=== PATIENT | male | born 1980 | race Two or more races ===

== ENCOUNTER 2016-11-18 13:24 | Emergency (ER) | payer OTHER ==
[~2016-11-18] VITALS: Ht 182.9 cm; Wt 99.8 kg
[2016-11-18 14:08] VITALS: BP 139/84
[2016-11-18] MEDS ORDERED: AMOX1TAB61 PO (14:22)
--- NOTE | 2016-11-18 14:22 | PHYS DOC ---
Past Medical History Past Medical History: No Pertinent History Past Surgical History: No Surgical History Alcohol Use: Rarely Drug Use: None Adult General Chief Complaint Chief Complaint: COUGH HPI HPI Patient is a 36 year old male presents emergency department stating that he has a 3 day history of cough congestion low-grade fever. 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 He states that his been taken over-the- counter medications with no relief. He also states that 3 days ago he started taken amoxicillin 875 mg at home which has not helped with any of the symptoms. Patient states he has also not had any appetite. Review of Systems Review of Systems Constitutional: low grade fever Eyes: Denies change in visual acuity, redness, or eye pain [] HENT: nasal congestion and sore throat [] Respiratory: cough denies shortness of breath [] Cardiovascular: No additional information not addressed in HPI [] GI: Denies abdominal pain, nausea, vomiting, bloody stools or diarrhea [] : Denies dysuria or hematuria [] Musculoskeletal: Denies back pain or joint pain [] Integument: Denies rash or skin lesions [] Neurologic: Denies headache, focal weakness or sensory changes [] Endocrine: Denies polyuria or polydipsia [] Allergies Allergies Allergies Coded Allergies Type Severity Reaction Last Updated Verified No Known Drug Allergies 11/18/16 No Physical Exam Physical Exam Constitutional: Well developed, well nourished, no acute distress, non-toxic appearance. [] HENT: Normocephalic, atraumatic, bilateral external ears normal, oropharynx moist, no oral exudates, nose normal. Bilateral tympanic membranes appear to be normal. Throat appears to be red with no erythematous no exudate noted. Patient with minimal frontal and maxillary sinus tenderness. Eyes: PERRLA, EOMI, conjunctiva normal, no discharge. [] Neck: Normal range of motion, no tenderness, supple, no stridor. [] Cardiovascular:Heart rate regular rhythm, no murmur [] Lungs & Thorax: Bilateral breath sounds clear to auscultation [] Skin: Warm, dry, no erythema, no rash. [] Back: No tenderness Extremities: No tenderness, no cyanosis, no clubbing, ROM intact, no edema. [] Neurologic: Alert and oriented X 3, normal motor function, normal sensory function, no focal deficits noted. [] Psychologic: Affect normal, judgement normal, mood normal. [] Current Patient Data Vital Signs Vital Signs Date Time Temp Pulse Resp B/P (MAP) Pulse Ox O2 Delivery O2 Flow Rate FiO2 11/18/16 14:08 99.6 104 16 96 Room Air 99.6 EKG EKG [] Radiology/Procedures Radiology/Procedures [] Course & Med Decision Making Course & Med Decision Making Pertinent Labs and Imaging studies reviewed. (See chart for details) Spoke with patient in regards to antibiotics as I feel that this is more likely a viral infection. Although patient is an employee here at the hospital and is exposed to multiple different infections patient will be covered with antibiotics. Patient was encouraged to use Mucinex DM [id number]. He'll be provided with Augmentin. Also recommended Tylenol and ibuprofen for fever chills or generalized body aches and discomfort. Recommended plenty of fluids water, Gatorade and propel as this will keep the patient hydrated. Patient will be discharged home in stable condition signs symptoms to return back to emergency department as been provided. Patient agrees with discharge instructions treatment regimens and follow-up recommendations. Dragon Disclaimer Dragon Disclaimer This electronic medical record was generated, in whole or in part, using a voice recognition dictation system. Departure Departure Impression: Primary Impression: Upper respiratory infection Disposition: 01 HOME, SELF-CARE Condition: STABLE Referrals: NON,STAFF (PCP) Patient Instructions: Upper Respiratory Infection, Adult, [id number] Additional Instructions: Activity as tolerated. Tylenol or ibuprofen for fever chills or generalized body aches and discomfort. Medication as prescribed. Drink plenty of fluids such as water, Gatorade or propel. Follow-up primary care physician next 3-5 days. Return back to emergency prior signs symptoms of become worse. Scripts Amoxicillin/Potassium Clav (AUGMENTIN 875-125 TABLET) 1 Each Tablet 1 TAB PO BID, #20 TAB Prov: EVI ETIENNE APRN 11/18/16 EVI ETIENNE APRN November 18, 2016 14:22
[2016-11-18] MEDS ORDERED: PROM5SYR2 PO (14:26)
== END 2016-11-18 14:38 | disposition home or self-care (01) ==
LOC: ER 14:36
DX: J06.9 Acute upper respiratory infection, unspecified (principal)
CPT/HCPCS: 99283

== ENCOUNTER 2017-06-15 23:23 | Emergency (ER) | payer OTHER ==
[~2017-06-15] VITALS: Ht 182.9 cm; Wt 99.8 kg
[2017-06-15 23:23] VITALS: BP 125/80
[~2017-06-15 23:23] MED LIST: AMOX1TAB61 PO; PROM5SYR2 PO
[2017-06-15] MEDS ORDERED: PRED50TA PO (23:42)
[2017-06-15] MEDS ORDERED: PROAIR HFA8.5 GM INH (23:42)
[2017-06-15] MEDS ORDERED: AZIT250T PO (23:42)
--- NOTE | 2017-06-15 23:43 | PHYS DOC ---
Past Medical History Past Medical History: No Pertinent History Past Surgical History: No Surgical History Alcohol Use: Rarely Drug Use: None Adult General Chief Complaint Chief Complaint: Congestion HPI HPI Patient is a 36 year old male presents to the emergency department with a one- week history of upper respiratory symptoms. Patient reports that he had fever at initial onset of his illness but has not had a fever for 3 days. States he's readily taking foods and fluids, no vomiting or diarrhea. He has intermittently used Tylenol without relief of symptoms. Review of Systems Review of Systems Constitutional: Denies fever or chills [] Eyes: Denies change in visual acuity, redness, or eye pain [] HENT: Nasal congestion and sore throat Respiratory: Cough without shortness of breath Cardiovascular: No additional information not addressed in HPI [] GI: Denies abdominal pain, nausea, vomiting, bloody stools or diarrhea [] : Denies dysuria or hematuria [] Musculoskeletal: Denies back pain or joint pain [] Integument: Denies rash or skin lesions [] Neurologic: Denies headache, focal weakness or sensory changes [] Endocrine: Denies polyuria or polydipsia [] All other systems were reviewed and found to be within normal limits, except as documented in this note. Allergies Allergies Allergies Coded Allergies Type Severity Reaction Last Updated Verified No Known Drug Allergies 11/18/16 No Physical Exam Physical Exam Constitutional: Well developed, well nourished, no acute distress, non-toxic appearance. [] HENT: Normocephalic, atraumatic, bilateral external ears normal, tympanic membranes pearly galvez with effusion, posterior pharynx injected, oropharynx moist, no oral exudates, nose normal. [] Eyes: PERRLA, EOMI, conjunctiva normal, no discharge. [] Neck: Normal range of motion, no tenderness, supple, no stridor. [] Cardiovascular:Heart rate regular rhythm, no murmur [] Lungs & Thorax: Scattered rhonchi, coarse Abdomen: Bowel sounds normal, soft, no tenderness, no masses, no pulsatile masses. [] Skin: Warm, dry, no erythema, no rash. [] Back: No tenderness, no CVA tenderness. [] Extremities: No tenderness, no cyanosis, no clubbing, ROM intact, no edema. [] Neurologic: Alert and oriented X 3, normal motor function, normal sensory function, no focal deficits noted. [] Psychologic: Affect normal, judgement normal, mood normal. [] EKG EKG [] Radiology/Procedures Radiology/Procedures [] Course & Med Decision Making Course & Med Decision Making Pertinent Labs and Imaging studies reviewed. (See chart for details) [] Dragon Disclaimer Dragon Disclaimer This electronic medical record was generated, in whole or in part, using a voice recognition dictation system. Departure Departure Impression: Primary Impression: Bronchitis Disposition: 01 HOME, SELF-CARE Condition: STABLE Referrals: UNKNOWN PCP NAME (PCP) [facility] Patient Instructions: Acute Bronchitis Additional Instructions: Stop Smoking. Return to the emergency department new symptoms or concerns or worsening of current condition Scripts Albuterol Sulfate (PROAIR HFA INHALER) 8.5 Gm Hfa.aer.ad 1 PUFF INH PRN Q6HRS Y for SHORTNESS OF BREATH, #1 INHALER 0 Refills Prov: NAZIA SALAZAR APRN 06/15/17 Prednisone (PREDNISONE) 50 Mg Tablet 1 TAB PO DAILY, #5 TAB Prov: NAZIA SALAZAR APRN 06/15/17 Azithromycin (ZITHROMAX) 250 Mg Tablet 1 PKG PO UD, #6 TAB Take 2 tablets on day 1 and 1 tablet on days 2 through 4 Prov: NAZIA SALAZAR APRN 06/15/17 NAZIA SALAZAR APRN Jun 15, 2017 23:43
== END 2017-06-15 23:51 | disposition home or self-care (01) ==
LOC: ER 23:23
DX: J40 Bronchitis, not specified as acute or chronic (principal)
CPT/HCPCS: 99283

== ENCOUNTER → 2018-07-18 | Outpatient (CLI) | payer OTHER ==
[~2018-07-18] MED LIST changes: +ALBU2.5V8 INH; +AZIT250T PO; +PRED50TA PO
--- NOTE | 2018-07-19 07:46 | RAD ---
Cervical spine, 3 views, 07/18/2018: HISTORY: Neck pain, left arm numbness The cervical vertebral heights and intervertebral disc spaces are well-maintained. There are minimal scattered marginal spurs. There is straightening of the normal cervical lordosis. No fracture or subluxation is evident. The prevertebral soft tissues are unremarkable. IMPRESSION: 1. Straightening of the normal cervical lordosis. 2. Minimal scattered marginal spurs. 3. No acute bony abnormality is detected. Electronically signed by: Corwin Farnsworth MD (07/19/2018 7:40 AM) [facility]
== END | disposition home or self-care (01) ==
LOC: RAD 20:23
PROVIDERS: ATTEND Family Medicine
DX: M46.02 Spinal enthesopathy, cervical region (principal)
CPT/HCPCS: 72040

== ENCOUNTER → 2018-07-25 | Outpatient (CLI) | payer OTHER ==
[2018-07-25 16:50] LABS: BASO % 0 % (0-3); EOS # 0.3 x10^3/uL (0.0-0.7); EOS % 4 % (0-3); HEMATOCRIT 46.6 % (39.0-53.0); HEMOGLOBIN 15.7 g/dL (13.0-17.5); LYMPH # 2.2 x10^3/uL (1.0-4.8); LYMPH % 32 % (24-48); MEAN CORPUSCULAR HEMOGLOBIN 31 pg (25-35); MEAN CORPUSCULAR HGB CONC 34 g/dL (31-37); MEAN CORPUSCULAR VOLUME 93 fL (79-100); MONO # 0.4 x10^3/uL (0.0-1.1); MONO % 6 % (0-9); NEUT % 58 % (31-73); PLATELET COUNT 185 x10^3/uL (140-400); WHITE BLOOD COUNT 6.8 x10^3/uL (4.0-11.0)
[2018-07-25 17:08] LABS: ALBUMIN 3.7 g/dL (3.4-5.0); ALBUMIN/GLOBULIN RATIO 1.1 (1.0-1.7); CALCIUM 9.1 mg/dL (8.5-10.1); POTASSIUM 4.4 mmol/L (3.5-5.1); TOTAL PROTEIN 7.1 g/dL (6.4-8.2)
== END | disposition home or self-care (01) ==
LOC: LAB 16:30
PROVIDERS: ATTEND Psychiatry & Neurology Neurology
DX: R20.2 Paresthesia of skin (principal); F17.210 Nicotine dependence, cigarettes, uncomplicated
CPT/HCPCS: 36415; 80053; 82550; 85025; 85651

== ENCOUNTER → 2018-10-22 | Outpatient (CLI) | payer OTHER ==
[~2018-10-22] MED LIST changes: +GADOBUTROL 10 MMOL/10 ML VIAL IV ONE
--- NOTE | 2018-10-22 11:40 | RAD ---
MRI of the cervical spine without and with contrast 10/22/2018 CLINICAL HISTORY: Worsening neck pain which radiates down the left arm for 2 years. TECHNIQUE: Unenhanced T1-weighted, T2-weighted and inversion recovery sagittal and gradient echo, T2-weighted and T1-weighted axial images of the cervical spine were obtained. After the intravenous administration of 9 cc of Gadavist, enhanced T1-weighted sagittal and axial images of the cervical spine were obtained. FINDINGS: Comparison is made to radiographs of the cervical spine dated 07/18/2018. Minimal lateral curvature of the cervical spine is seen convex to the left. There is straightening of the normal cervical lordosis. Degenerative signal changes are seen involving the C3-4, C4-5, C5-6 and C6-7 discs. Degenerative signal changes are seen within the marrow surrounding these discs. No area of abnormal signal intensity is seen involving the cervical spinal cord. No area of abnormal contrast enhancement is seen. At the C2-3 and C3-4 disc spaces there are minimal generalized disc bulges. Degenerative changes are seen involving the uncovertebral and facet joints bilaterally. These findings do not result in significant central spinal canal or neural foraminal stenosis. At the C4-5 disc space there is a mild generalized disc bulge. Superimposed on this disc bulge is a focal central/left paracentral disc protrusion. This measures 3 mm in AP diameter. Degenerative changes are seen involving the uncovertebral and facet joints, left greater than right. These findings efface the anterior CSF resulting in mild central spinal canal stenosis without evidence of cord impingement. Mild to moderate left neural foraminal stenosis is seen. The right neural foramen is patent. At the C5-6 disc space there is a mild to moderate generalized disc bulge. This is eccentric to the left. Degenerative changes are seen involving the uncovertebral and facet joints, left greater than right. These findings when combined result in mild central spinal canal stenosis without evidence of cord impingement. Mild left neural foraminal stenosis is seen. The right neural foramen is patent. At the C6-7 disc space there is a mild to moderate generalized disc bulge. This is eccentric to the left. Superimposed on this disc bulge is a central/left paracentral disc herniation. This measures 5 mm in AP diameter. Degenerative changes are seen involving the uncovertebral and facet joints, left greater than right. These findings when combined result in mild to moderate left greater than right central spinal canal stenosis. Mild left-sided cord impingement is seen. Severe left neural foraminal stenosis is noted. The right neural foramen is patent. At the C7-T1 disc space there is a minimal generalized disc bulge. Degenerative changes are seen involving the facet joints bilaterally. These findings when combined do not result in significant central spinal canal or neural foraminal stenosis. IMPRESSION: Degenerative changes are seen throughout the cervical spine. These findings result in mild central spinal canal stenosis at C4-5 and C5-6 without evidence of cord impingement. Mild to moderate left neural foraminal stenosis is seen at C4-5. Mild left neural foraminal stenosis is seen at C5-6. At the C6-7 disc space a central/left paracentral focal disc herniation is seen. This contributes to mild to moderate left greater than right central spinal canal stenosis with mild left-sided cord impingement. Severe left neural foraminal stenosis is seen at this level. Electronically signed by: Max Leung MD (10/22/2018 11:37 AM) [id number]
[2018-10-22 13:43] LABS: BASO % 0 % (0-3); EOS # 0.1 x10^3/uL (0.0-0.7); EOS % 2 % (0-3); HEMATOCRIT 48.7 % (39.0-53.0); HEMOGLOBIN 16.3 g/dL (13.0-17.5); LYMPH # 2.9 x10^3/uL (1.0-4.8); LYMPH % 33 % (24-48); MEAN CORPUSCULAR HEMOGLOBIN 32 pg (25-35); MEAN CORPUSCULAR HGB CONC 34 g/dL (31-37); MEAN CORPUSCULAR VOLUME 94 fL (79-100); MONO # 0.7 x10^3/uL (0.0-1.1); MONO % 8 % (0-9); NEUT # 5.1 x10^3uL (1.8-7.7); NEUT % 57 % (31-73); PLATELET COUNT 214 x10^3/uL (140-400); RED BLOOD COUNT 5.19 x10^6/uL (4.30-5.70); RED CELL DISTRIBUTION WIDTH 12.8 % (11.5-14.5); WHITE BLOOD COUNT 8.9 x10^3/uL (4.0-11.0)
[2018-10-22 14:06] LABS: ALBUMIN 4.5 g/dL (3.4-5.0); ALBUMIN/GLOBULIN RATIO 1.5 (1.0-1.7); CALCIUM 9.4 mg/dL (8.5-10.1); CREATININE 0.9 mg/dL (0.7-1.3); POTASSIUM 4.6 mmol/L (3.5-5.1); TOTAL BILIRUBIN 0.6 mg/dL (0.2-1.0); TOTAL PROTEIN 7.5 g/dL (6.4-8.2)
== END | disposition home or self-care (01) ==
LOC: MRI 09:26
PROVIDERS: ATTEND Psychiatry & Neurology Neurology
DX: M48.02 Spinal stenosis, cervical region (principal); M50.223 Other cervical disc displacement at C6-C7 level
CPT/HCPCS: 36415; 72156; 80053; 82550; 85025; 85651; A9585

== ENCOUNTER → 2018-10-24 | Outpatient (CLI) | payer OTHER ==
--- NOTE | 2018-10-24 16:03 | RAD ---
MRI of the thoracic spine without and with contrast 10/24/2018 CLINICAL HISTORY: Upper back pain with which radiates down the left arm. Numbness and tingling. TECHNIQUE: Unenhanced T1-weighted, T2-weighted and inversion recovery sagittal and T2-weighted axial images of the thoracic spine were obtained. After the intravenous administration of 9 cc of Gadavist, enhanced fat saturated T1-weighted sagittal and axial images of the thoracic spine were obtained. FINDINGS: Very mild S-shaped curvature of the thoracolumbar spine is seen. Degenerative signal changes and loss of height are seen involving the T6-7 and T7-8 disc. The marrow signal of the visualized bony structures is within normal limits. No area of abnormal signal intensity is seen involving the thoracic spinal cord. No area of abnormal contrast enhancement is seen. The T1-T2 through T5-6 disc spaces are within normal limits. At the T6-7 disc space on the axial images there is a mild generalized disc bulge. Superimposed on this disc bulge is a central/left paracentral focal disc protrusion. This measures 3 mm in AP diameter. This effaces the anterior CSF without resulting in significant central spinal canal or neural foraminal stenosis. At the T7-8 disc space there is minimal generalized disc bulge. Superimposed on this disc bulge is a left paracentral focal disc protrusion. This measures 2 mm in AP diameter. These findings do not result in significant central spinal canal or neural foraminal stenosis. The T8-9 through T11-12 disc spaces are within normal limits. IMPRESSION: Degenerative changes are seen involving the mid thoracic spine as outlined above. These findings do not result in significant central spinal canal or neural foraminal stenosis. No area of abnormal signal intensity or contrast enhancement is seen involving the thoracic spinal cord. Electronically signed by: Max Leung MD (10/24/2018 4:00 PM) [id number]
== END | disposition home or self-care (01) ==
LOC: MRI 13:43
PROVIDERS: ATTEND Psychiatry & Neurology Neurology
DX: M47.814 Spondylosis without myelopathy or radiculopathy, thoracic region (principal); M51.24 Other intervertebral disc displacement, thoracic region
CPT/HCPCS: 72157; A9585

== ENCOUNTER 2019-03-09 17:47 | Emergency (ER) | payer OTHER ==
[~2019-03-09] VITALS: Ht 188 cm; Wt 81.6 kg
[~2019-03-09 17:47] MED LIST changes: -GADOBUTROL 10 MMOL/10 ML VIAL IV ONE
[2019-03-09 17:56] VITALS: BP 121/73
--- NOTE | 2019-03-09 18:18 | PHYS DOC ---
Past Medical History Past Medical History: No Pertinent History Past Surgical History: No Surgical History Alcohol Use: None Drug Use: None Adult General Chief Complaint Chief Complaint: [facility] HPI Patient is a 38 year old [male] who presents with [abscess to buttocks. Patient reports he noticed yesterday some discomfort and swelling on his buttocks. Reports he has had this to previous times in the past, has had been cleaned out surgically in the past. Reports he had similar procedure 1 month ago, at home he had the lip and squeezed in had relief with that. Denies any fevers. Denies any other concerns, reports he continues to have some discomfort. ] Review of Systems Review of Systems Constitutional: Denies fever or chills [] Respiratory: Denies cough or shortness of breath [] Cardiovascular: No additional information not addressed in HPI [] GI: Denies abdominal pain, nausea, vomiting, bloody stools or diarrhea [] : Denies dysuria or hematuria [] Musculoskeletal: Denies back pain or joint pain [] Integument: Reports lesion to lower back started yesterday. [] Neurologic: Denies headache, focal weakness or sensory changes [] Endocrine: Denies polyuria or polydipsia [] All other systems were reviewed and found to be within normal limits, except as documented in this note. Allergies Allergies Allergies Coded Allergies Type Severity Reaction Last Updated Verified No Known Drug Allergies 11/18/16 No Physical Exam Physical Exam Constitutional: Well developed, well nourished, no acute distress, hirsute, non-toxic appearance. [] Cardiovascular:Heart rate regular rhythm, no murmur [] Lungs & Thorax: Bilateral breath sounds clear to auscultation [] Abdomen: Bowel sounds normal, soft, no tenderness, no masses, no pulsatile masses. [] Skin: Warm, dry, no erythema, no rash. Approx 1.5 cm abscess noted to upper buttocks, fluctuant, tender, no surrounding erythema.[] Back: No tenderness, no CVA tenderness. [] Extremities: No tenderness, no cyanosis, no clubbing, ROM intact, no edema. [] Neurologic: Alert and oriented X 3, normal motor function, normal sensory function, no focal deficits noted. [] Psychologic: Affect normal, judgement normal, mood normal. [] Current Patient Data Vital Signs Vital Signs Date Time Temp Pulse Resp B/P (MAP) Pulse Ox O2 Delivery O2 Flow Rate FiO2 03/09/19 17:56 98.4 105 19 121/73 (89) 96 Room Air 98.4 EKG EKG [] Radiology/Procedures Radiology/Procedures [] Course & Med Decision Making Course & Med Decision Making Pertinent Labs and Imaging studies reviewed. (See chart for details) [Discussed with patient wound may need surgical clean out as [place]. States it feels like it did a month ago when he was able to open it there and drain and would like this attempted again. Advise patient we can attempt this, will put him on Abx, but if he continues to have discomfort or issues, he may need surgical cleaning. patient in agreement] Following wound drainage, patient reports he feels better, has less discomfort. Discussed observing lesion, and consideration for follow up with surgery if needed. patient in agreement with plan Dragon Disclaimer Dragon Disclaimer This electronic medical record was generated, in whole or in part, using a voice recognition dictation system. Incision and Drainage Indication: abscess Procedure: The patient was positioned appropriately. Local anesthesia was [n/a]. Surrounding area cleansed with Chlorhexidine scrub An incision was then made over the apex of the lesion and [approximately 8 ml purulent discharge noted] material was expressed. T. The patient�s tetanus status updated as needed. The patient tolerated the procedure well. Complications: none. Departure Departure Impression: Primary Impression: Abscess of back Disposition: 01 HOME, SELF-CARE Condition: GOOD Referrals: ARUN WYMAN MD (PCP) Patient Instructions: Abscess, Care After Additional Instructions: As discussed, keep the area clean and dry. Keep the gauze over it. A few continued to have these abscesses, or if this one returns or gets larger, he may need surgical debridement of this lesion. Take antibiotic as prescribed. Tylenol or ibuprofen as needed for discomfort Scripts Sulfamethoxazole/Trimethoprim (BACTRIM DS TABLET) 1 Each Tablet 1 EACH PO BID for 7 Days, #14 TAB Prov: ROCIO ALSTNO APRN 03/09/19 ROCIO ALSTON APRN Mar 09, 2019 18:18
[2019-03-09] MEDS ORDERED: SULF1TAB24 PO (18:51)
== END 2019-03-09 19:06 | disposition home or self-care (01) ==
LOC: ER 17:47
DX: L02.31 Cutaneous abscess of buttock (principal)
CPT/HCPCS: 10060; 99283